=== PATIENT | male | born 1950 | race Two or more races ===

== ENCOUNTER 2017-08-08 03:12 | Inpatient (IN) | payer MEDICARE, MEDICAID ==
[2017-08-08] MEDS ORDERED: D5-0.45NS 1,000 ML IV SCH (03:30)
[2017-08-08 03:39] VITALS: BP 151/69
[2017-08-08 09:23] LABS: % BASOPHILS 0.2 % (0.0-2.0); % EOSINOPHILS 1.3 % (0.0-5.0); % LYMPHOCYTES 30.8 % (20.0-50.0); % MONOCYTES 5.4 % (2.0-10.0); % NEUTROPHILS 62.3 % (40.0-80.0); HEMATOCRIT 35.5 % (39.0-49.0); HEMOGLOBIN 12.3 gm/dL (12.6-17.4); MEAN CELL VOLUME 87.2 fl (80-99); MEAN CORPUSCULAR HEMOGLOBIN 30.2 pg (27.0-31.0); MEAN CORPUSCULAR HGB CONC 34.6 pg (28.0-36.0); MEAN PLATELET VOLUME 9.9 fl; NEUTROPHILE ABSOLUTE 4.8 Th/cmm (1.8-8.0); PLATELET COUNT 180 Th/cmm (150-400); RED BLOOD COUNT 4.08 Mil/cmm (3.80-5.80); RED CELL DISTRIBUTION WIDTH 12.1 % (11.5-20.0); WHITE BLOOD COUNT 7.6 Th/cmm (4.8-10.8)
[2017-08-08 09:50] LABS: ALB/GLOB RATIO 1.4 (1.0-1.8); ANION GAP 8.3 (7.0-16.0); BILIRUBIN,TOTAL 0.6 mg/dL (0.3-1.0); BUN/CREATININE RATIO 22.7; CALCIUM SERUM 9.5 mg/dL (8.6-10.3); CARBON DIOXIDE 24.7 mEq/L (21.0-31.0); CREATININE - SERUM 1.5 mg/dL (0.7-1.3)
--- NOTE | 2017-08-08 10:18 | Consultation ---
DATE OF CONSULTATION: 08/08/2017 HISTORY OF PRESENT ILLNESS: The patient is a 67-year-old, had been complaining of some nausea, vomiting, some abdominal discomfort. The patient also complained of headache, some dysequilibrium. The patient had previous history of stroke. He has some weakness in the left side. [place] little bit worse. Seems to be back to baseline according to him, but still unsteady, difficulty walking. PAST MEDICAL HISTORY: 1. Hypertension. The patient with stroke with left-sided weakness, history of seizures. 2. History of subdural hematoma. 3. Diabetes. SOCIAL HISTORY: He does smoke. He does drink. REVIEW OF SYSTEMS: Twelve point negative except for above. ALLERGIES: None known. MEDICATIONS: Per reconciliation. PHYSICAL EXAMINATION: VITAL SIGNS: Temperature 98.2, blood pressure 130/70, pulse is 74. NECK: Supple. No neck bruits. HEART: Sounds S1, S2. LUNGS: Clear. NEUROLOGIC: The patient is awake, alert. He speaks some [place], answers questions. He understands. No aphasia. No marked dysarthria. No marked visual field defect, though difficult with his interaction. Pupils react to light. No marked . MOTOR: He lifts both arms up, but some weakness on the left drift. Gait is definitely is unsteady. INVESTIGATIONS: CT scan of the head done at [facility], right frontal old stroke, left occipital old stroke. Right basal ganglia, lacunar. IMPRESSION: 1. History of stroke. Rule out new one. 2. Hypertension. 3. Diabetes. 4. Abdominal pain. PLAN: The patient at this time will have an MRI. He has strokes in 2 different distributions, right frontal and left occipital. Question of possible rule out embolic. The patient at the moment is sinus rhythm. I would recommend cardiology input also. The patient will have an MRI brain, will have an MRA head and neck. Continue present treatment for the time being. Management of abdominal pain as per PMD. JOB# [id number]
[2017-08-08] MEDS ORDERED: Hydrocodone/APAP 5mg/325mg Tab PO PRN (12:14)
[2017-08-08] MEDS ORDERED: Maalox 30 mL Cup PO PRN (12:14)
[2017-08-08] MEDS ORDERED: Hydrocodone/APAP 10 mg/325 mg Tab PO PRN (12:14)
[2017-08-08] MEDS ORDERED: Magnesium Hydroxide (MOM) 30 mL UDC PO PRN (12:14)
[2017-08-08] MEDS ORDERED: Sodium Chloride 0.9% 1,000 ML IV SCH (12:15)
--- NOTE | 2017-08-08 13:36 | History & Physical ---
ADMIT DATE: 08/08/2017 CHIEF COMPLAINT: The patient has fatigue, nausea and vomiting. HISTORY OF PRESENT ILLNESS: The patient is a 67-year-old male, who presented to [facility] ED at [place]. The patient was brought in by for headache and vomiting and dysequilibrium. The patient was intermittently confused for the past 6 months or so. The patient complains of 5/10 throbbing, intermittent nonradiating head pain onset. It was present for 3 days. The patient also is vomiting 3 to 4 times for 2 days. The patient had no fever and chills. The patient had no abdominal pain, chest pain or shortness of breath. The patient has generalized weakness. The patient's says the patient is weak on his left side, and has constantly fallen to the left side, and ambulates for past 5 days. PAST MEDICAL HISTORY: Alcohol abuse, hypertension, depressive disorder, anxiety disorder, history of cerebrovascular accident, epilepsy, subdural hematoma, diabetes mellitus type 2, congestive heart failure, anemia, history of alcohol abuse, tobacco abuse, coronary artery disease. PAST SURGICAL HISTORY: Negative. ALLERGIES: No known allergies. SOCIAL HISTORY: Positive for alcohol use. The patient drinks 5-6 beers a day with tequila, positive tobacco abuse. Denies IV drug use. ALLERGIES: No known drug allergies. PHYSICAL EXAMINATION: GENERAL: The patient is awake, nontoxic in appearance. VITAL SIGNS: On admission, temperature 98.5, pulse 62, blood pressure 151/69, heart rate 18, O2 sat 98% on room air. HEENT: Normocephalic, atraumatic. Extraocular movements are intact. Oropharynx is clear. NECK: Supple. No thyromegaly. CARDIOVASCULAR: S1, S2. No rubs, gallops. RESPIRATORY: Clear. No wheezes or rhonchi. GASTROINTESTINAL: Soft, nontender, bowel sounds present. MUSCULOSKELETAL: No CVA tenderness. BACK: No midline tenderness. EXTREMITIES: Equal pulses bilaterally. No significant edema. SKIN: Negative. PSYCHIATRIC: Negative. NEUROLOGIC: Intact Sensation. Neurovascular is intact. The patient is confused. LABORATORY DATA: Last admission. CBC: WBC 7.6, hemoglobin 12.8, hematocrit 35.5, and platelet count of 180, no left shift noted. Chemistry: Sodium 130, potassium 4.0, chloride 101, bicarb 24.3, BUN 34, creatinine per labs, GFR is 14.3, glucose 235, calcium 9.5, total bilirubin 0.6, AST is 11, ALT is 10, alkaline phosphatase 84, total protein 7.5, albumin 4.4, globulin 3.1. RADIOLOGY: Chest x-ray performed at [facility] ER shows mild pulmonary vascular congestion. EKG showed normal sinus rhythm with first degree AV block. RADIOLOGY: CT of the head shows a right frontal left occipital encephalomalacia. Remote right basal ganglial infarct. Moderate global volume loss and mild hydrocephalus. No acute hemorrhage, large cortical infarct or mass effect. IMPRESSION: 1. Weakness. 2. Anemia. 3. Hyponatremia. 4. Acute kidney injury. 5. Hyperglycemia. 6. Diabetes mellitus type 2. 7. Alcohol abuse. 8. Hypertension. 9. Depressive disorder with anxiety disorder. 10. Epilepsy. 11. History of cerebrovascular accident and history of subdural hematoma. 12. Congestive heart failure. 13. History of tobacco abuse. 14. Coronary artery disease. PLAN: The patient admitted to telemetry unit, Dr. Danelle Tobar. We will obtain Neurology and Cardiology consultations. We will obtain PT evaluation. We will obtain further labs and consultations as needed. JOB# [id number] MAGDALENA
--- NOTE | 2017-08-08 15:33 | Consultation ---
Consult Note - Consult Note Service Date: 08/08/17 Referring Physician: Alexander Tobar Consult Note: PHYSICIAN Consultation Note: Date of Admission: 08/08/17 Purpose of Consultation: COLLIN Chief Complaint: stomach pain, weakness History of Present Illness: Patient NELSON VALDEZ was admitted to [facility] ed Telemetry with R/O CVA /TIA WEAKNESS. he presented to [facility] with complaints of abdominal pain occurring after eating a spicy heavy meal. he was noted by his to seem weak and dizzy with unilateral weakness. He was brought for further evaluation. He was noted to have a Cr of 1.5. Patient denies prior renal issues, no NSAID use, DM2 and blood pressures are well controlled per patient. No difficulties passing urine. Past Medical History: Allergies Allergy/AdvReac Type Severity Reaction Status Date / Time No Known Allergies Allergy Verified 08/08/17 04:02 Vital Signs Temp 98.8 F 08/08/17 07:32 Pulse 65 08/08/17 07:32 Resp 20 08/08/17 07:32 BP 144/74 08/08/17 07:32 Pulse Ox 95 08/08/17 07:32 Intake & Output 08/07/17 08/08/17 08/08/17 18:59 06:59 18:59 Intake Total 200 Balance 200 Weight (lbs) 87.589 kg 87.543 kg Intake: Oral 200 Other: # Voids 2 Stool Characteristics Soft Formed Laboratory Results - last 24 hr 08/08/17 08/08/17 08/08/17 09:19 09:19 09:19 WBC 7.6 RBC 4.08 Hgb 12.3 L Hct 35.5 L MCV 87.2 MCH 30.2 MCHC Differential 34.6 RDW 12.1 Plt Count 180 MPV 9.9 Neutrophils % 62.3 Lymphocytes % 30.8 Monocytes % 5.4 Eosinophils % 1.3 Basophils % 0.2 Sodium 130 L Potassium 4.0 Chloride 101 Carbon Dioxide 24.7 Anion Gap 8.3 BUN 34 H Creatinine 1.5 H Est GFR ( Amer) 59.7 Est GFR (Non-Af Amer) 49.3 BUN/Creatinine Ratio 22.7 Glucose 235 H Hemoglobin A1c % 7.3 H Calcium 9.5 Total Bilirubin 0.6 AST 11 L ALT 10 Alkaline Phosphatase 84 Total Protein 7.5 Albumin 4.4 Globulin 3.1 Albumin/Globulin Ratio 1.4 Home Medication Medication Instructions Recorded Type Carbamazepine [Tegretol*] 100 mg PO BID 04/06/15 History Dextrose [Insta-Glucose] 37.5 gm PO PRN PRN 04/06/15 History Escitalopram Oxalate [Lexapro] 10 mg PO DAILY 04/06/15 History GLUCAGON HCl [Glucagen] 1 mg IM PRN 04/06/15 History Glipizide [Glucotrol] 5 mg PO DAILY 04/06/15 History Insulin Human Regular [humuLIN R] See Protocol SUBQ PRN PRN 04/06/15 History Levetiracetam [Keppra] 500 mg PO BID 04/06/15 History Lisinopril [Prinivil*] 5 mg PO DAILY 04/06/15 History Metoprolol Tartrate [Lopressor] 50 mg PO BID 04/06/15 History Ondansetron HCl [Zofran*] 4 mg PO Q6H PRN 04/06/15 History Simvastatin [Zocor] 20 mg PO HS 04/06/15 History hydrOXYzine [Atarax*] 10 mg PO BID PRN 04/06/15 History metFORMIN [Glucophage] 500 mg PO BID 04/06/15 History Current Medications Generic Name Dose Route Start Last Admin Trade Name Freq PRN Reason Stop Dose Admin Acetaminophen 650 mg 08/08/17 12:14 Tylenol PO 10/07/17 12:13 Q6H PRN Mild Pain/Headache/T above 101 Acetaminophen/Hydrocodone Bitart 1 tab 08/08/17 12:14 08/08/17 13:38 [place] 10 Mg/325 Mg PO 10/07/17 12:13 1 tab Q6H PRN Administration Pain (Severe) Acetaminophen/Hydrocodone Bitart 1 tab 08/08/17 12:14 [place] 5mg/325mg PO 10/07/17 12:13 Q6H PRN Moderate Pain Al Hydrox/Mg Hydrox/Simethicone 30 ml 08/08/17 12:14 Maalox PO 10/07/17 12:13 Q6H PRN Dyspepsia Carbamazepine 100 mg 08/08/17 17:00 Tegretol PO 10/07/17 16:59 BID [place] Escitalopram Oxalate 10 mg 08/09/17 09:00 Lexapro PO 10/08/17 08:59 DAILY [place] Protocol Glipizide 5 mg 08/09/17 09:00 Glucotrol PO 10/08/17 08:59 QDAC [place] Hydroxyzine HCl 10 mg 08/08/17 12:19 Atarax PO 10/07/17 12:18 BID PRN Itching Protocol Sodium Chloride 1,000 mls @ 100 mls/hr 08/08/17 12:15 Nacl 0.9% IV 10/07/17 12:14 .Q10H [place] Insulin Aspart 0 units 08/08/17 16:30 Novolog Insulin Sliding Scale SUBQ 10/07/17 16:29 ACHS [place] Protocol Levetiracetam 500 mg 08/08/17 17:00 Keppra PO 10/07/17 16:59 BID [place] Lisinopril 5 mg 08/09/17 09:00 Zestril PO 10/08/17 08:59 DAILY [place] Lorazepam 1 mg 08/08/17 12:14 Ativan PO 10/07/17 12:13 Q6H PRN Anxiety/Agitation Protocol Magnesium Hydroxide 30 ml 08/08/17 12:14 Milk Of Magnesia PO 10/07/17 12:13 HS PRN Constipation Metformin HCl 500 mg 08/08/17 17:00 Glucophage PO 10/07/17 16:59 BIDWM [place] Metoprolol Tartrate 50 mg 08/08/17 17:00 Lopressor PO 10/07/17 16:59 BID [place] Miscellaneous 1 ea 08/08/17 13:38 Clinical Monitoring 10/07/17 13:37 PRN PRN MONITOR SCR Ondansetron HCl 4 mg 08/08/17 12:19 Zofran Odt PO Q6H PRN Nausea Simvastatin 20 mg 08/08/17 21:00 Zocor PO 10/07/17 20:59 HS [place] Review of Systems: A 12 point ROS was reviewed with the pertinent positive and negatives noted in the HPI. Social History Smoking Status Current every day smoker Drug Use No Alcohol Use No Family Medical History Family Medical History Start: 08/08/17 03: 32 Freq: ONCE Status: Active Document 08/08/17 03:32 YPJOCE (Rec: 08/08/17 07:51 YPJOCE [id number]) Family Medical History Mother History Unknown Yes Ethnicity Physical Exam: vitals stable General: awake alert male well nourished in NAD HEENT: head atraumatic, sclerae anicteric op clear moist Neck: supple Cardio: s1s2 regular no murmurs Respiratory: clear bilaterally Abdominal: soft ntnd Genital/Urinary: not done Extremities: no edema Neurological: awake alert ambulatory Assessment: 1. COLLIN nonoliguric vs ckd 2. TIA/CVA 3. weakness 4. DM2 5. HTN Plan: to continue with IV fluids will hold Lisinopril in setting of COLLIN check urinalysis avoid nephrotoxins including NSAIDs no indication for renal replacement therapy check urine lytes and renal US will cont to follow with you Signed, Ananda Becker [id number]
[2017-08-08] MEDS ORDERED: VTE Chemical Prophylaxis Screen/Admission MC PRN (15:37)
[2017-08-08] MEDS: INSULIN ASPART SLIDING SCALE 100 UNITS/ML UNIT SUBQ SCH ×2 (18:10→22:22)
[2017-08-09 06:19] LABS: % BASOPHILS 0.3 % (0.0-2.0); % EOSINOPHILS 0.6 % (0.0-5.0); % LYMPHOCYTES 24.6 % (20.0-50.0); % NEUTROPHILS 69.5 % (40.0-80.0); HEMATOCRIT 33.3 % (39.0-49.0); HEMOGLOBIN 11.6 gm/dL (12.6-17.4); MEAN CELL VOLUME 86.5 fl (80-99); MEAN CORPUSCULAR HEMOGLOBIN 30.1 pg (27.0-31.0); MEAN CORPUSCULAR HGB CONC 34.8 pg (28.0-36.0); MEAN PLATELET VOLUME 10.6 fl; NEUTROPHILE ABSOLUTE 6.5 Th/cmm (1.8-8.0); PLATELET COUNT 172 Th/cmm (150-400); RED BLOOD COUNT 3.85 Mil/cmm (3.80-5.80); RED CELL DISTRIBUTION WIDTH 12.3 % (11.5-20.0)
[2017-08-09 06:25] LABS: WHITE BLOOD COUNT 9.4 Th/cmm (4.8-10.8)
[2017-08-09] MEDS: INSULIN ASPART SLIDING SCALE 100 UNITS/ML UNIT SUBQ SCH ×4 (06:37→20:53)
[2017-08-09 06:47] LABS: ANION GAP 11.3 (7.0-16.0); BUN - UREA NITROGEN 33 mg/dL (7-25); BUN/CREATININE RATIO 23.6; CARBON DIOXIDE 24.2 mEq/L (21.0-31.0); CHLORIDE 104 mEq/L (98-107); CREATININE - SERUM 1.4 mg/dL (0.7-1.3); GLUCOSE 137 mg/dL (70-105); POTASSIUM SERUM 4.5 mEq/L (3.5-5.1); SODIUM SERUM 135 mEq/L (136-145)
[2017-08-09 06:48] LABS: URINE BILIRUBIN NEGATIVE (NEGATIVE); URINE BLOOD SMALL (NEGATIVE); URINE GLUCOSE (UA) NEGATIVE (NEGATIVE); URINE KETONE NEGATIVE (NEGATIVE); URINE PROTEIN 100 mg/dL (NEGATIVE); URINE UROBILINOGEN 0.2 E.U./dL (0.2 - 1.0)
[2017-08-09 06:51] LABS: URINE COLOR YELLOW
[2017-08-09 06:56] LABS: URINE BACTERIA OCCASIONAL /hpf (NONE SEEN); URINE EPITHELIAL CELLS FEW /lpf (FEW); URINE WBC NONE SEEN /hpf (0-5)
--- NOTE | 2017-08-09 10:52 | Progress Notes ---
DATE: 08/09/2017 SUBJECTIVE: The patient is awake, alert, getting up and walking around. No nausea, or vomiting. Still some dysequilibrium and unsteadiness. OBJECTIVE: VITAL SIGNS: Temperature 98.2, blood pressure 137/74, pulse is 76. NECK: Supple. No bruits. HEART: Sounds, S1, S2. NEUROLOGIC: The patient answers questions. No marked dysarthria. No visual field defect, though difficult to say. Pupils react. Motor: Some drift on the left side. Gait is somewhat unsteady. DIAGNOSTICS: CT scan had shown right frontal lobe old stroke, left occipital old stroke, right basal ganglia lacunar. MRI head pending. MRA head and neck pending. IMPRESSION: History of multiple strokes in different distribution. Possibility of embolic. The patient's MRI of the brain, with MRA head and neck. Also recommend that the patient be seen by cardiology, and will need some monitoring to make sure that the patient does not have occult arrhythmias such as atrial fibrillation. May need echocardiogram to rule out cardiogenic etiology. History of hypertension. Diabetes. Abdominal pain. Management by PMD . JOB# [id number]
--- NOTE | 2017-08-09 11:24 | Diagnostic Imaging Report ---
MR angiogram (MRA) of the brain HISTORY: Stroke, CVA Multiple MRI sequences including SPGR and 3-D TOF sequences were obtained. The exam is compromised and limited due to patient motion. The exam demonstrates a normal caliber of the distal portions of the internal carotid arteries. No abnormalities are seen within the intracavernous portions of the internal carotid arteries. The distal vertebral and basilar arteries appear normal. No abnormalities are seen about the [place]. Specifically, no aneurysms or vascular malformations are seen. There is normal positioning of the anterior and middle cerebral arteries. IMPRESSION: Normal examination
--- NOTE | 2017-08-09 11:24 | Diagnostic Imaging Report ---
MRI of the brain without intravenous contrast HISTORY: Stroke, CVA Multiple MRI sequences were obtained the axial, coronal, and sagittal planes. There is enlargement of the ventricular system along with enlargement cerebral sulci and subarachnoid cisterns reflecting atrophy. Mild periventricular increased signal is noted about the periphery of the lateral ventricles on T2 and FLAIR images. In addition, small hyperintense foci are scattered through the supratentorial white matter regions on the sequences. The findings may be associated with chronic small vessel ischemic disease. Somewhat more focal heterogeneous changes noted in the left occipital region characterized by hypointensity on T1 sequences and increased signal intensity on T2 and FLAIR sequences. Changes may be related to an old infarct. A more discrete focus with similar MRI signal characteristics is noted in the right internal capsule area. Again, findings are most likely related to an old infarct. Focal changes noted in the cortex of the left cerebellum suggesting an old infarct. The brainstem is normal. The seventh/eighth nerve complexes are seen bilaterally and appear normal. No extra-axial masses or abnormal fluid collections. No abnormality seen in the region of the sella turcica/pituitary gland. There is an approximate 1.5 cm round intraluminal density within the lower portion of the right maxillary sinus consistent with a mucosal polyp or cyst. IMPRESSION: 1. Limited exam due to patient motion artifact 2. No definite acute abnormalities 3. Findings suggesting old infarcts within the left occipital, right internal capsule region, and left cerebellar cortex. 4. Supratentorial and periventricular white matter changes that may reflect chronic small vessel ischemic disease 5. Cerebral atrophy 6. Intraluminal density within the right maxillary sinus probably related to a mucosal polyp or cyst.
[2017-08-09] MEDS ORDERED: Sodium Chloride 0.9% 1,000 ML IV SCH (15:21)
--- NOTE | 2017-08-09 15:21 | General Progress Note ---
Subjective - Review of Systems Service Date: 08/09/17 Events since last encounter: ambulatory no new complaints Subjective: no new complaints voiding well Objective - Results Result Diagrams: 08/09/17 05:48 08/09/17 05:48 Recent Labs: Laboratory Last Values WBC 9.4 Th/cmm (4.8-10.8) D 08/09/17 05:48 RBC 3.85 Mil/cmm (3.80-5.80) 08/09/17 05:48 Hgb 11.6 gm/dL (12.6-17.4) L 08/09/17 05:48 Hct 33.3 % (39.0-49.0) L 08/09/17 05:48 MCV 86.5 fl (80-99) 08/09/17 05:48 MCH 30.1 pg (27.0-31.0) 08/09/17 05:48 MCHC Differential 34.8 pg (28.0-36.0) 08/09/17 05:48 RDW 12.3 % (11.5-20.0) 08/09/17 05:48 Plt Count 172 Th/cmm (150-400) 08/09/17 05:48 MPV 10.6 fl 08/09/17 05:48 Neutrophils % 69.5 % (40.0-80.0) 08/09/17 05:48 Lymphocytes % 24.6 % (20.0-50.0) 08/09/17 05:48 Monocytes % 5.0 % (2.0-10.0) 08/09/17 05:48 Eosinophils % 0.6 % (0.0-5.0) 08/09/17 05:48 Basophils % 0.3 % (0.0-2.0) 08/09/17 05:48 Sodium 135 mEq/L (136-145) L 08/09/17 05:48 Potassium 4.5 mEq/L (3.5-5.1) 08/09/17 05:48 Chloride 104 mEq/L (98-107) 08/09/17 05:48 Carbon Dioxide 24.2 mEq/L (21.0-31.0) 08/09/17 05:48 Anion Gap 11.3 (7.0-16.0) 08/09/17 05:48 BUN 33 mg/dL (7-25) H 08/09/17 05:48 Creatinine 1.4 mg/dL (0.7-1.3) H 08/09/17 05:48 Est GFR ( Amer) > 60.0 ml/min (>90) 08/09/17 05:48 Est GFR (Non-Af Amer) 53.4 ml/min 08/09/17 05:48 BUN/Creatinine Ratio 23.6 08/09/17 05:48 Glucose 137 mg/dL (70-105) H 08/09/17 05:48 POC Glucose 178 MG/DL (70 - 105) H 08/09/17 11:47 Hemoglobin A1c % 7.3 % (4.0-6.0) H 08/08/17 09:19 Calcium 9.0 mg/dL (8.6-10.3) 08/09/17 05:48 Total Bilirubin 0.6 mg/dL (0.3-1.0) 08/08/17 09:19 AST 11 U/L (13-39) L 08/08/17 09:19 ALT 10 U/L (7-52) 08/08/17 09:19 Alkaline Phosphatase 84 U/L (34-104) 08/08/17 09:19 Total Protein 7.5 gm/dL (6.0-8.3) 08/08/17 09:19 Albumin 4.4 gm/dL (4.2-5.5) 08/08/17 09:19 Globulin 3.1 gm/dL 08/08/17 09:19 Albumin/Globulin Ratio 1.4 (1.0-1.8) 08/08/17 09:19 Urine Source MIDSTREAM 08/09/17 05:50 Urine Color YELLOW 08/09/17 05:50 Urine Clarity CLEAR (CLEAR) 08/09/17 05:50 Urine pH 6.0 (4.6 - 8.0) 08/09/17 05:50 Ur Specific [place] 1.015 (1.005-1.030) 08/09/17 05:50 Urine Protein 100 mg/dL (NEGATIVE) H 08/09/17 05:50 Urine Glucose (UA) NEGATIVE mg/dL (NEGATIVE) 08/09/17 05:50 Urine Ketones NEGATIVE mg/dL (NEGATIVE) 08/09/17 05:50 Urine Blood SMALL (NEGATIVE) H 08/09/17 05:50 Urine Nitrate NEGATIVE (NEGATIVE) 08/09/17 05:50 Urine Bilirubin NEGATIVE (NEGATIVE) 08/09/17 05:50 Urine Urobilinogen 0.2 E.U./dL (0.2 - 1.0) 08/09/17 05:50 Ur Leukocyte Esterase NEGATIVE (NEGATIVE) 08/09/17 05:50 Urine RBC 2-5 /hpf (0-5) H 08/09/17 05:50 Urine WBC NONE SEEN /hpf (0-5) 08/09/17 05:50 Ur Epithelial Cells FEW /lpf (FEW) 08/09/17 05:50 Urine Bacteria OCCASIONAL /hpf (NONE SEEN) 08/09/17 05:50 Urine Mucus FEW /lpf (FEW) 08/09/17 05:50 Ur Random Sodium 22 mmol/L 08/09/17 05:50 Urine Creatinine 52.0 mg/dl (39.0-259.0) 08/09/17 05:50 - Physical Exam Vitals and I&O: Vital Signs Temp 98.6 F 08/09/17 12:00 Pulse 66 08/09/17 12:00 Resp 20 08/09/17 12:00 BP 152/77 08/09/17 12:00 Pulse Ox 97 08/09/17 12:00 Intake & Output 08/08/17 08/09/17 08/09/17 18:59 06:59 18:59 Intake Total 200 Output Total 300 Balance -100 Weight (lbs) 87.543 kg 87.543 kg Intake: Oral 200 Output: Urine 300 Other: # Voids 2 # Bowel Movements 0 Stool Characteristics Soft Formed Active Medications: Current Medications Acetaminophen (Tylenol) 650 mg PO Q6H PRN PRN Reason: Mild Pain/Headache/T above 101 Stop: 10/07/17 12:13 Acetaminophen/Hydrocodone Bitart ([place] 10 Mg/325 Mg) 1 tab PO Q6H PRN PRN Reason: Pain (Severe) Stop: 10/07/17 12:13 Last Admin: 08/08/17 13:38 Dose: 1 tab Acetaminophen/Hydrocodone Bitart ([place] 5mg/325mg) 1 tab PO Q6H PRN PRN Reason: Moderate Pain Stop: 10/07/17 12:13 Al Hydrox/Mg Hydrox/Simethicone (Maalox) 30 ml PO Q6H PRN PRN Reason: Dyspepsia Stop: 10/07/17 12:13 Carbamazepine (Tegretol) 100 mg PO BID [facility] Stop: 10/07/17 16:59 Last Admin: 08/09/17 08:44 Dose: 100 mg Escitalopram Oxalate (Lexapro) 10 mg PO DAILY [place] PRN Reason: Protocol Stop: 10/08/17 08:59 Glipizide (Glucotrol) 5 mg PO QDAC [facility] Stop: 10/08/17 08:59 Last Admin: 08/09/17 12:05 Dose: 5 mg Heparin Sodium (Porcine) (Heparin) 5,000 units SUBQ Q12H [place] Stop: 10/07/17 20:59 Last Admin: 08/09/17 08:46 Dose: 5,000 units Hydroxyzine HCl (Atarax) 10 mg PO BID PRN; Protocol PRN Reason: Itching Stop: 10/07/17 12:18 Sodium Chloride (Nacl 0.9%) 1,000 mls @ 100 mls/hr IV .Q10H [facility] Stop: 10/07/17 12:14 Insulin Aspart (Novolog Insulin Sliding Scale) 0 units SUBQ ACHS [place] PRN Reason: Protocol Stop: 10/07/17 16:29 Last Admin: 08/09/17 12:05 Dose: 3 units Levetiracetam (Keppra) 500 mg PO BID [facility] Stop: 10/07/17 16:59 Last Admin: 08/09/17 08:44 Dose: 500 mg Lisinopril (Zestril) 5 mg PO DAILY [facility] Stop: 10/08/17 08:59 Last Admin: 08/09/17 08:45 Dose: 5 mg Lorazepam (Ativan) 1 mg PO Q6H PRN; Protocol PRN Reason: Anxiety/Agitation Stop: 10/07/17 12:13 Magnesium Hydroxide (Milk Of Magnesia) 30 ml PO HS PRN PRN Reason: Constipation Stop: 10/07/17 12:13 Metformin HCl (Glucophage) 500 mg PO BIDWM [facility] Stop: 10/07/17 16:59 Last Admin: 08/09/17 08:44 Dose: 500 mg Metoprolol Tartrate (Lopressor) 50 mg PO BID [facility] Stop: 10/07/17 16:59 Last Admin: 08/09/17 08:46 Dose: 50 mg Miscellaneous (Clinical Monitoring) 1 ea [facility] PRN PRN PRN Reason: MONITOR SCR Stop: 10/07/17 13:37 Miscellaneous ([employer]te [employer] Prophylaxis Screen/ Admission) 1 ea [facility] PRN PRN PRN Reason: PROTOCOL Stop: 10/07/17 15:36 Ondansetron HCl (Zofran Odt) 4 mg PO Q6H PRN PRN Reason: Nausea Simvastatin (Zocor) 20 mg PO HS [place] Stop: 10/07/17 20:59 Last Admin: 08/08/17 22:19 Dose: 20 mg General: Alert, Oriented x3 HEENT: Atraumatic, PERRLA, Mucous membr. moist/pink Neck: Supple Cardiovascular: Regular rate, Normal S1, Normal S2 Lungs: Clear to auscultation Abdomen: Soft, no Tender Extremities: no Edema Neurological: Normal gait, Normal speech Skin: no Rash Assessment/Plan - Problem List Patient Problems: All Active Problems Psychosis (Acute) F29 - Assessment Assessment: krystina on ckd proteinuria hyponatremia gen weakness r/o cva/tia abd pain - Plan Plan: continue current mgmt ivf adelaida-i for antiproteinuric and renal protective effect on discharge avoid nephrotoxins outpatient f/u in [facility] clinic
--- NOTE | 2017-08-09 15:29 | Cardiology ---
08/08/2017 M-MODE ECHOCARDIOGRAM: Mitral valve, anterior leaflet of mitral valve shows normal excursion, EF velocity. Posterior leaflet of mitral valve shows normal excursion. Left ventricular posterior valve shows increased thickness, normal excursion. Interventricular septum shows increased thickness, normal excursion, hypertrophy of the left ventricle, ejection fraction 50%. Left atrium normal. Aortic root shows normal dimension, normal excursion of aortic leaflets. CONCLUSION: Hypertrophy of the left ventricle, ejection fraction 50%. 2D ECHO: Long axis view showed normal sized left ventricle with hypertrophy of the left ventricle. Left atrium normal. Aortic root shows normal dimension, normal excursion of aortic leaflets. Short axis view of mitral valve normal. Short axis view of aortic valve normal. Apical four chamber view showed normal sized left ventricle with hypertrophy of the left ventricle. Left atrium normal. Right ventricular cavity, right atrium normal, no pericardial effusion. CONCLUSION: Hypertrophy of the left ventricle, ejection fraction 50%. Doppler study shows trace tricuspid regurgitation. JOB# [id number]
--- NOTE | 2017-08-10 02:09 | Progress Notes ---
DATE: 08/09/2017 SUBJECTIVE: The patient is awake, alert. The patient is ambulating. ____ PHYSICAL EXAMINATION: VITAL SIGNS: Temperature is 98, pulse 75, blood pressure 140/79, respiratory rate 20, and O2 sat is 90% on room air. CARDIOVASCULAR: S1 and S2. RESPIRATORY: Clear. GASTROINTESTINAL: Soft. Positive bowel sounds. LABORATORY DATA: Hematology: WBC is 9.4, hemoglobin 9.6, hematocrit 33.3, platelet count of 172. Chemistry: Sodium 135, potassium 4.5, chloride 104, bicarbonate 24, anion gap 11, BUN 33, creatinine ____, GFR is 53, glucose is 137, calcium 9.0. Urinalysis shows 100 protein, small blood, 2-5 rbc. ____. ASSESSMENT: 1. Cerebrovascular accident. 2. Anemia. 3. Hypernatremia (improved). 4. Acute kidney injury. 5. Diabetes mellitus type 2. 6. Alcohol abuse. 7. Hypertension. 8. Anxiety disorder. 9. Epilepsy. 10. Congestive heart failure. 11. History of tobacco abuse. 12. Coronary artery disease. PLAN: Continue current medication and treatment. Obtain labs in a.m. Awaiting Cardiology consultation. Awaiting MRI, MRA. JOB# [id number]
[2017-08-10 06:21] LABS: % BASOPHILS 0.4 % (0.0-2.0); % EOSINOPHILS 1.4 % (0.0-5.0); % LYMPHOCYTES 31.5 % (20.0-50.0); % MONOCYTES 7.3 % (2.0-10.0); % NEUTROPHILS 59.4 % (40.0-80.0); HEMATOCRIT 32.7 % (41.0-60); HEMOGLOBIN 11.2 gm/dL (12-16); MEAN CELL VOLUME 87.7 fl (80-99); MEAN CORPUSCULAR HEMOGLOBIN 29.9 pg (27.0-31.0); MEAN CORPUSCULAR HGB CONC 34.1 pg (28.0-36.0); NEUTROPHILE ABSOLUTE 4.4 Th/cmm (1.8-8.0); PLATELET COUNT 155 Th/cmm (150-400); RED BLOOD COUNT 3.73 Mil/cmm (3.80-5.80); RED CELL DISTRIBUTION WIDTH 12.1 % (11.5-20.0); WHITE BLOOD COUNT 7.3 Th/cmm (4.8-10.8)
[2017-08-10] MEDS: INSULIN ASPART SLIDING SCALE 100 UNITS/ML UNIT SUBQ SCH ×4 (06:40→21:33)
[2017-08-10 06:41] LABS: ANION GAP 9.1 (7.0-16.0); BUN - UREA NITROGEN 29 mg/dL (7-25); BUN/CREATININE RATIO 24.2; CALCIUM SERUM 9.2 mg/dL (8.6-10.3); CARBON DIOXIDE 24.3 mEq/L (21.0-31.0); CHLORIDE 103 mEq/L (98-107); CREATININE - SERUM 1.2 mg/dL (0.7-1.3); GLUCOSE 96 mg/dL (70-105); MAGNESIUM 2.1 mg/dL (1.9-2.7); PHOSPHOROUS 2.9 mg/dL (2.5-5.0); POTASSIUM SERUM 4.4 mEq/L (3.5-5.1); SODIUM SERUM 132 mEq/L (136-145)
--- NOTE | 2017-08-10 14:28 | General Progress Note ---
Subjective - Review of Systems Service Date: 08/10/17 Subjective: Denies c/o this afternoon, pleasant. Objective - Results Result Diagrams: 08/10/17 05:25 08/10/17 05:25 Recent Labs: Laboratory Last Values WBC 7.3 Th/cmm (4.8-10.8) D 08/10/17 05:25 RBC 3.73 Mil/cmm (3.80-5.80) L 08/10/17 05:25 Hgb 11.2 gm/dL (12-16) L 08/10/17 05:25 Hct 32.7 % (41.0-60) L 08/10/17 05:25 MCV 87.7 fl (80-99) 08/10/17 05:25 MCH 29.9 pg (27.0-31.0) 08/10/17 05:25 MCHC Differential 34.1 pg (28.0-36.0) 08/10/17 05:25 RDW 12.1 % (11.5-20.0) 08/10/17 05:25 Plt Count 155 Th/cmm (150-400) 08/10/17 05:25 MPV 10.0 fl 08/10/17 05:25 Neutrophils % 59.4 % (40.0-80.0) 08/10/17 05:25 Lymphocytes % 31.5 % (20.0-50.0) 08/10/17 05:25 Monocytes % 7.3 % (2.0-10.0) 08/10/17 05:25 Eosinophils % 1.4 % (0.0-5.0) 08/10/17 05:25 Basophils % 0.4 % (0.0-2.0) 08/10/17 05:25 Sodium 132 mEq/L (136-145) L 08/10/17 05:25 Potassium 4.4 mEq/L (3.5-5.1) 08/10/17 05:25 Chloride 103 mEq/L (98-107) 08/10/17 05:25 Carbon Dioxide 24.3 mEq/L (21.0-31.0) 08/10/17 05:25 Anion Gap 9.1 (7.0-16.0) 08/10/17 05:25 BUN 29 mg/dL (7-25) H 08/10/17 05:25 Creatinine 1.2 mg/dL (0.7-1.3) 08/10/17 05:25 Est GFR ( Amer) > 60.0 ml/min (>90) 08/10/17 05:25 Est GFR (Non-Af Amer) > 60.0 ml/min 08/10/17 05:25 BUN/Creatinine Ratio 24.2 08/10/17 05:25 Glucose 96 mg/dL (70-105) 08/10/17 05:25 POC Glucose 187 MG/DL (70 - 105) H 08/10/17 12:17 Hemoglobin A1c % 7.3 % (4.0-6.0) H 08/08/17 09:19 Calcium 9.2 mg/dL (8.6-10.3) 08/10/17 05:25 Phosphorus 2.9 mg/dL (2.5-5.0) 08/10/17 05:25 Magnesium 2.1 mg/dL (1.9-2.7) 08/10/17 05:25 Total Bilirubin 0.6 mg/dL (0.3-1.0) 08/08/17 09:19 AST 11 U/L (13-39) L 08/08/17 09:19 ALT 10 U/L (7-52) 08/08/17 09:19 Alkaline Phosphatase 84 U/L (34-104) 08/08/17 09:19 Total Protein 7.5 gm/dL (6.0-8.3) 08/08/17 09:19 Albumin 4.4 gm/dL (4.2-5.5) 08/08/17 09:19 Globulin 3.1 gm/dL 08/08/17 09:19 Albumin/Globulin Ratio 1.4 (1.0-1.8) 08/08/17 09:19 Urine Source MIDSTREAM 08/09/17 05:50 Urine Color YELLOW 08/09/17 05:50 Urine Clarity CLEAR (CLEAR) 08/09/17 05:50 Urine pH 6.0 (4.6 - 8.0) 08/09/17 05:50 Ur Specific [place] 1.015 (1.005-1.030) 08/09/17 05:50 Urine Protein 100 mg/dL (NEGATIVE) H 08/09/17 05:50 Urine Glucose (UA) NEGATIVE mg/dL (NEGATIVE) 08/09/17 05:50 Urine Ketones NEGATIVE mg/dL (NEGATIVE) 08/09/17 05:50 Urine Blood SMALL (NEGATIVE) H 08/09/17 05:50 Urine Nitrate NEGATIVE (NEGATIVE) 08/09/17 05:50 Urine Bilirubin NEGATIVE (NEGATIVE) 08/09/17 05:50 Urine Urobilinogen 0.2 E.U./dL (0.2 - 1.0) 08/09/17 05:50 Ur Leukocyte Esterase NEGATIVE (NEGATIVE) 08/09/17 05:50 Urine RBC 2-5 /hpf (0-5) H 08/09/17 05:50 Urine WBC NONE SEEN /hpf (0-5) 08/09/17 05:50 Ur Epithelial Cells FEW /lpf (FEW) 08/09/17 05:50 Urine Bacteria OCCASIONAL /hpf (NONE SEEN) 08/09/17 05:50 Urine Mucus FEW /lpf (FEW) 08/09/17 05:50 Ur Random Sodium 22 mmol/L 08/09/17 05:50 Urine Creatinine 52.0 mg/dl (39.0-259.0) 08/09/17 05:50 - Physical Exam Vitals and I&O: Vital Signs Temp 98.4 F 08/10/17 12:06 Pulse 63 08/10/17 12:06 Resp 17 08/10/17 12:06 BP 155/70 08/10/17 12:06 Pulse Ox 99 08/10/17 12:06 Intake & Output 08/09/17 08/10/17 08/10/17 18:59 06:59 18:59 Intake Total 600 Output Total 1600 Balance -1000 Weight (lbs) 88.904 kg Intake: Oral 600 Output: Urine 1600 Other: # Voids 2 # Bowel Movements 1 Stool Characteristics Formed Active Medications: Current Medications Acetaminophen (Tylenol) 650 mg PO Q6H PRN PRN Reason: Mild Pain/Headache/T above 101 Stop: 10/07/17 12:13 Acetaminophen/Hydrocodone Bitart ([place] 10 Mg/325 Mg) 1 tab PO Q6H PRN PRN Reason: Pain (Severe) Stop: 10/07/17 12:13 Last Admin: 08/08/17 13:38 Dose: 1 tab Acetaminophen/Hydrocodone Bitart ([place] 5mg/325mg) 1 tab PO Q6H PRN PRN Reason: Moderate Pain Stop: 10/07/17 12:13 Al Hydrox/Mg Hydrox/Simethicone (Maalox) 30 ml PO Q6H PRN PRN Reason: Dyspepsia Stop: 10/07/17 12:13 Carbamazepine (Tegretol) 100 mg PO BID [place] Stop: 10/07/17 16:59 Last Admin: 08/10/17 08:59 Dose: 100 mg Escitalopram Oxalate (Lexapro) 10 mg PO DAILY [place] PRN Reason: Protocol Stop: 10/08/17 08:59 Last Admin: 08/10/17 09:02 Dose: 10 mg Glipizide (Glucotrol) 5 mg PO QDAC [place] Stop: 10/08/17 08:59 Last Admin: 08/10/17 06:39 Dose: 5 mg Heparin Sodium (Porcine) (Heparin) 5,000 units SUBQ Q12H [facility] Stop: 10/07/17 20:59 Last Admin: 08/10/17 09:01 Dose: 5,000 units Hydroxyzine HCl (Atarax) 10 mg PO BID PRN; Protocol PRN Reason: Itching Stop: 10/07/17 12:18 Sodium Chloride (Nacl 0.9%) 1,000 mls @ 50 mls/hr IV .Q20H [facility] Stop: 10/08/17 15:20 Insulin Aspart (Novolog Insulin Sliding Scale) 0 units SUBQ ACHS [place] PRN Reason: Protocol Stop: 10/07/17 16:29 Last Admin: 08/10/17 12:51 Dose: 3 units Levetiracetam (Keppra) 500 mg PO BID [facility] Stop: 10/07/17 16:59 Last Admin: 08/10/17 08:59 Dose: 500 mg Lisinopril (Zestril) 5 mg PO DAILY [place] Stop: 10/08/17 08:59 Last Admin: 08/10/17 09:00 Dose: 5 mg Lorazepam (Ativan) 1 mg PO Q6H PRN; Protocol PRN Reason: Anxiety/Agitation Stop: 10/07/17 12:13 Magnesium Hydroxide (Milk Of Magnesia) 30 ml PO HS PRN PRN Reason: Constipation Stop: 10/07/17 12:13 Metformin HCl (Glucophage) 500 mg PO BIDWM [facility] Stop: 10/07/17 16:59 Last Admin: 08/10/17 09:05 Dose: 500 mg Metoprolol Tartrate (Lopressor) 50 mg PO BID [facility] Stop: 10/07/17 16:59 Last Admin: 08/10/17 09:00 Dose: 50 mg Miscellaneous (Clinical Monitoring) 1 ea [facility] PRN PRN PRN Reason: MONITOR SCR Stop: 10/07/17 13:37 Miscellaneous (Vte Chemical Prophylaxis Screen/ Admission) 1 ea [facility] PRN PRN PRN Reason: PROTOCOL Stop: 10/07/17 15:36 Ondansetron HCl (Zofran Odt) 4 mg PO Q6H PRN PRN Reason: Nausea Simvastatin (Zocor) 20 mg PO HS [facility] Stop: 10/07/17 20:59 Last Admin: 08/09/17 20:46 Dose: 20 mg General: Alert, Oriented x3 HEENT: Atraumatic, PERRLA, Mucous membr. moist/pink Neck: Supple Cardiovascular: Regular rate, Normal S1, Normal S2 Lungs: Clear to auscultation Abdomen: Soft, no Tender Extremities: no Edema Neurological: Normal gait, Normal speech Skin: no Rash Assessment/Plan - Problem List Patient Problems: All Active Problems Psychosis (Acute) F29 - Assessment Assessment: COLLIN on CKD, improved DM nephropathy, stable. OK to resume EARL-I low-dose at this point for proteinuria and renoprotection H&H stable BP controlled - Plan Plan: Will see as needed. Pt can follow up with us as outpatient Nutritional Asmnt/Malnutr-PDOC - Dietary Evaluation Malnutrition Findings (Please click <Entered> for more info): Nutritional Asmnt/Malnutrition Start: 08/09/17 15: 11 Text: Status: Complete Freq: Document 08/09/17 15:11 GSUN (Rec: 08/09/17 15:30 GSUN [email or web address]) Nutritional Asmnt/Malnutrition Patient General Information Nutritional Screening High Risk Screening Diagnosis Weakness, anemia, COLLIN Pertinent Medical Hx/Surgical Hx Alcohol abuse, HTN, depressive disorder, anxiety disorder, CVA, epilepsy, subdural hematoma, DM 2, CHF, anemia, tobacco abuse, CAD Subjective Information 67 year old male from home. Cymraes speaking, speaks little Hebrew, charge account clerk and MANAGER FAMILY assisted with translations . CHELLY Schroeder stated pt with episodes of confusion at times , good appetite. Pt ambulating with walker. Spoke to pt in room, pt is unaware of being diabetic. Vacuum Pan Operator informed [facility] diet, pt agreeable to plan. Pt stated the food is not good , only eats 's cooking, had <25% lunch today. Vacuum Pan Operator attempted to obtain food preferences, pt declined stating there is nothing that can be changed. Not suitable for DM edu due to cognition and slight agitation. Teeth intact. Pt report UBW 190lb, CBW 202lb with shoes included. No muscle fat wasting noted. Current Diet Order/ Nutrition Support Consistent carbohydrate Pertinent Medications Glucotrol, Novolog, MOM, Glucophage, Zofran Pertinent Labs 08/08: A1c 7.3H 08/09: BUN 33H, clinical quality assurance specialist 1.4H, glucose 137H Nutritional Hx/Data Height 1.68 m Height (Calculated Centimeters) 167.6 Current Weight (lbs) 87.543 kg Weight (Calculated Kilograms) 87.5 Weight (Calculated Grams) 81143.3 [place] Body Weight 142 Weight Status Obese GI Symptoms Skin Integrity/Comment: Dayday 18. Skin intact. Estimated Nutritional Goals BEE in Kcals: Adj wt of IBW Calories/Kcals/Kg AdjBW 154.8lb/70.3kg Kcals Calculated 1758-2109kcal (25-30kcal/kg) Protein: Adj wt of IBW Protein Calculated 70g (1g/kg) Fluid: ml 1758-2109ml (1ml/kcal) Nutritional Problem 2. Problem Problem Altered nutrition related laboratory values related to Etiology DM aeb Signs/Symptoms: A1c 7.3, glucose 235 on adm 1. Problem Problem Inadequate oral food beverage intake related to Etiology food preferences aeb Signs/Symptoms: pt only wants 's cooking, <25% lunch today Intervention/Recommendation Comments 1. Recommend [id number] to better meet nutritional needs while promoting glycemic control. 2. Monitor renal labs, dx COLLIN, recommend low sodium restrictions if needed. 3. Nursing staff to provide sueprvision and obtain pt's food preferences as able. Expected Outcomes/Goals Expected Outcomes/Goals 1. PO intake to meet at least 75% of estimated nutritional needs.
[2017-08-11] MEDS: INSULIN ASPART SLIDING SCALE 100 UNITS/ML UNIT SUBQ SCH ×3 (06:49→16:54)
--- NOTE | 2017-08-31 02:24 | Discharge Summary ---
DATE OF DISCHARGE: 08/11/2017 DISCHARGE DIAGNOSES: 1. Cerebrovascular accident. 2. Anemia. 3. Hypernatremia, improved. 4. Acute kidney injury. 5. Diabetes mellitus type 2. 6. Alcohol abuse. 7. Hypertension. 8. Anxiety disorder. 9. Epilepsy. 10. Congestive heart failure. 11. History of tobacco abuse. 12. History of coronary artery disease. HOSPITAL COURSE: The patient is a 67-year-old male, who was transferred from [facility]. The patient was admitted with weakness, anemia, hypernatremia, acute kidney injury, hyperglycemia, diabetes mellitus type 2, alcohol abuse, hypertension, depressive disorder, anxiety disorder as well as history of CVA, history of subdural hematoma, CHF, tobacco abuse, and coronary artery disease, admitted to telemetry unit. Consultations obtained: Neurology consultation, Dr. Gonsalves who will see the patient to rule out CVA. The patient ordered for MRI of the head. Nephrology consultation with Dr. Becker. The patient's brain MRA showed ____ brain MRI ____. After clearance by Neurology, the patient was discharged on 08/11/2017. JOB# [id number]
== END 2017-08-11 17:34 | DRG 683 ==
LOC: TELE 03:12
PROVIDERS: ADMIT Preventive Medicine Preventive Medicine/Occupational Environmental Medicine; ATTEND Preventive Medicine Preventive Medicine/Occupational Environmental Medicine
DX: N17.9 Acute kidney failure, unspecified (principal); E87.1 Hypo-osmolality and hyponatremia; I50.9 Heart failure, unspecified; I13.0 Hypertensive heart and chronic kidney disease with heart failure and stage 1 through stage 4 chronic kidney disease, or unspecified chronic kidney disease; E11.21 Type 2 diabetes mellitus with diabetic nephropathy; I69.354 Hemiplegia and hemiparesis following cerebral infarction affecting left non-dominant side; F32.9 Major depressive disorder, single episode, unspecified; F41.9 Anxiety disorder, unspecified; E11.65 Type 2 diabetes mellitus with hyperglycemia; D64.9 Anemia, unspecified; F10.10 Alcohol abuse, uncomplicated; G40.909 Epilepsy, unspecified, not intractable, without status epilepticus; F17.210 Nicotine dependence, cigarettes, uncomplicated; I25.10 Atherosclerotic heart disease of native coronary artery without angina pectoris; W18.30XA Fall on same level, unspecified, initial encounter; Y93.89 Activity, other specified; Y92.89 Other specified places as the place of occurrence of the external cause; Y99.8 Other external cause status; N18.9 Chronic kidney disease, unspecified; Z79.4 Long term (current) use of insulin
CPT/HCPCS: 36415-UA; 80048-TC; 80053-TC; 81001-TC; 82570-TC; 82948-90; 83036-90; 83735-TC; 84100-TC; 84300-TC; 85025-TC; 93005; J1644; J1815; Q0162; Z7610; Z7610-TC